=== PATIENT | female | born 1960 | race Asian ===

== ENCOUNTER 2018-04-07 08:44 | Day surgery (SDC) | payer OTHER ==
[2018-04-06 14:47] VITALS: BMI 24.3
[2018-04-07] MEDS ORDERED: LIDOCAINE VISCOUS 2% ORAL/TOP 20 ML UNIT-DOSE CUP ONE (10:17)
[2018-04-07] MEDS ORDERED: PROPOFOL 20 ML ONE ×3 (10:17)
[2018-04-07 11:29] VITALS: TEMP 97.8
[2018-04-07 12:10] VITALS: BP 129/84; PULSE 60
--- NOTE | 2018-04-10 10:11 | PATH ---
Surgical Pathology Report Patient Name: JUAN FLORES [facility]. Rec. #: [id number] /Age/Gender: 1960 (Age: 57) / F Account: [id number] Location: U-ENDOSCOPY Taken: 04/07/2018 Received: 04/07/2018 Reported: 04/10/2018 Physicians: Osman Riggs M.D. Specimen(s) Received A: BX 2ND PORTION DUODENUM AND DUODENAL BULB B: BX ANTRUM Clinical History Family history of stomach cancer, colon cancer screening, constipation, rectal bleeding Postoperative diagnosis: Atrophic gastritis, normal colon screening Final Diagnosis A. DUODENUM, SECOND PORTION AND DUODENAL BULB, BIOPSY: DUODENAL MUCOSA WITH MILD CHRONIC DUODENITIS, SMALL LYMPHOID AGGREGATES, AND PRESERVED VILLOUS ARCHITECTURE. B. STOMACH, ANTRUM, BIOPSY: GASTRIC ANTRAL MUCOSA WITH MODERATE CHRONIC GASTRITIS AND INTESTINAL METAPLASIA. IMMUNOHISTOCHEMICAL STAIN FOR H. PYLORI IS NEGATIVE. Electronically Signed Lesvia Silver M.D. Gross Description A. Received in formalin, labeled "biopsy second portion of duodenum and duodenal bulb" are 3 hadley, irregular portions of soft tissue ranging from 0.3-0.4 cm. in greatest dimension. The specimens are submitted in toto in one cassette. B. Received in formalin, labeled "biopsy antrum" are 7 hadley, irregular portions of soft tissue ranging from 0.2-0.6 cm. in greatest dimension. The specimens are submitted in toto in one cassette. DL/04/07/2018 saudi/04/07/2018
== END 2018-04-07 12:11 | disposition home or self-care (01) ==
LOC: JASU-ENDO 08:44
PROVIDERS: ATTEND Internal Medicine Gastroenterology
PROC: 0DB98ZX Excision of Duodenum, Via Natural or Artificial Opening Endoscopic, Diagnostic (ICD-10-PCS; 2018-04-07)
PROC: 0DJD8ZZ Inspection of Lower Intestinal Tract, Via Natural or Artificial Opening Endoscopic (ICD-10-PCS; principal; 2018-04-07 10:00)
DX: Z12.11 Encounter for screening for malignant neoplasm of colon (principal); Z80.0 Family history of malignant neoplasm of digestive organs; K64.8 Other hemorrhoids; K29.40 Chronic atrophic gastritis without bleeding
CPT/HCPCS: 43239; G0105; 88305-TC; 88342-TC

== ENCOUNTER 2018-05-31 08:10 | Emergency (ER) | payer OTHER ==
[2018-05-31 08:15] VITALS: BP 144/104; PULSE 78; TEMP 97.9; BMI 24.7
[2018-05-31] MEDS ORDERED: ASPIRIN 81 MG CHEWABLE TABLETS PO ONE (08:36)
--- NOTE | 2018-05-31 08:36 | PDOC ---
History of Present Illness - General Chief Complaint: Chest Pain Stated Complaint: Nausea PAIN Time Seen by Provider: 05/31/18 08:25 History Source: Patient Past History - Past Medical History Allergies/Adverse Reactions: Allergies Allergy/AdvReac Type Severity Reaction Status Date / Time No Known Allergies Allergy Verified 05/31/18 08:14 Home Medications: Ambulatory Orders NK [No Known Home Medication] 04/06/18 Anemia: No Asthma: No Cancer: No Cardiac Disorders: No CVA: No COPD: No CHF: No Dementia: No Diabetes: No GI Disorders: Yes (GASTRITIS, GERD) Disorders: No HTN: No Hypercholesterolemia: Yes Liver Disease: No Seizures: No Thyroid Disease: No - Surgical History Abdominal Surgery: Yes Appendectomy: No Cardiac Surgery: No Cholecystectomy: Yes (LAP CHOL-2012) Lung Surgery: No Neurologic Surgery: No Orthopedic Surgery: Yes (LEFT WRIST-OPEN REDUCTION, LT ULCER FX SX) - Immunization History Immunization Up to Date: Yes - Suicide/Smoking/Psychosocial Hx Smoking History: Never smoked Have you smoked in the past 12 months: No Hx Alcohol Use: No Drug/Substance Use Hx: No Substance Use Type: None Hx Substance Use Treatment: No Cardiac Specific PMH - Complaint Specific PMHX Pacemaker: No *Physical Exam - Vital Signs Last Vital Signs Temp Pulse Resp BP Pulse Ox 97.9 F 78 18 144/104 96 05/31/18 08:12 05/31/18 08:12 05/31/18 08:12 05/31/18 08:12 05/31/18 08:12 *DC/Admit/Observation/Transfer - Referrals Referrals: Lili Davis MD [Primary Care Provider] - - Patient Instructions - Post Discharge Activity
--- NOTE | 2018-05-31 08:59 | PDOC ---
History of Present Illness - General Chief Complaint: Chest Pain Stated Complaint: Nausea PAIN Time Seen by Provider: 05/31/18 08:25 History Source: Patient Exam Limitations: Clinical Condition - History of Present Illness Initial Comments: 05/31/18 08:57 Patient with history of hyperlipidemia, GERD and lung papilloma requiring lumpectomy 2 years ago present with complain of left-sided chest pain which she describes as aching pain localized to left side. Patient denies radiation of pain, shortness of breath, dizziness, nausea, vomiting, palpitations. Timing/Duration: 24 hours Past History - Past Medical History Allergies/Adverse Reactions: Allergies Allergy/AdvReac Type Severity Reaction Status Date / Time No Known Allergies Allergy Verified 05/31/18 08:14 Home Medications: Ambulatory Orders Naproxen 500 mg PO BID PRN #20 tablet 05/31/18 Anemia: No Asthma: No Cancer: No Cardiac Disorders: No CVA: No COPD: No CHF: No Dementia: No Diabetes: No GI Disorders: Yes (GASTRITIS, GERD) Disorders: No HTN: No Hypercholesterolemia: Yes Liver Disease: No Seizures: No Thyroid Disease: No - Surgical History Abdominal Surgery: Yes Appendectomy: No Cardiac Surgery: No Cholecystectomy: Yes (LAP CHOLEY-2012) Lung Surgery: No Neurologic Surgery: No Orthopedic Surgery: Yes (LEFT WRIST-OPEN REDUCTION, LT ULCER FX SX) - Immunization History Immunization Up to Date: Yes - Suicide/Smoking/Psychosocial Hx Smoking History: Never smoked Have you smoked in the past 12 months: No Hx Alcohol Use: No Drug/Substance Use Hx: No Substance Use Type: None Hx Substance Use Treatment: No Review of Systems - Review of Systems Able to Perform ROS?: Yes Is the patient limited Togolese proficient: No Constitutional: No: Chills, Fever HEENTM: No: Symptoms Reported Respiratory: No: Cough, Shortness of Breath, SOB with Exertion, Productive cough , Hemoptysis Cardiac (ROS): Yes: Chest Pain (left sided). No: Irregular Heart Rate, Palpitations, Syncope, Chest Tightness ABD/GI: No: Diarrhea, Nausea, Vomiting Musculoskeletal: Yes: Muscle Pain (left chest wall pain). No: Muscle Weakness Neurological: No: Headache, Numbness, Weakness, Unsteady Gait All Other Systems: Reviewed and Negative *Physical Exam - Vital Signs Last Vital Signs Temp Pulse Resp BP Pulse Ox 97.9 F 78 18 144/104 96 05/31/18 08:12 05/31/18 08:12 05/31/18 08:12 05/31/18 08:12 05/31/18 08:12 - Physical Exam Comments: 05/31/18 09:14 GENERAL: Well developed, well nourished. Awake and alert. No acute distress. HEENT: Normocephalic, atraumatic. PERRLA, EOMI. No conjunctival pallor. Sclera are non- icteric. Moist mucous membranes. Oropharynx is clear. NECK: Supple. Full ROM. No JVD. Carotid pulses 2+ and symmetric, without bruits. No thyromegaly. No lymphadenopathy. CARDIOVASCULAR: Mild reproducible tenderness over left second coaster region. Regular rate and rhythm. No murmurs, rubs, or gallops. Distal pulses are 2+ and symmetric. PULMONARY: No evidence of respiratory distress. Lungs clear to auscultation bilaterally. No wheezing, rales or rhonchi. ABDOMINAL: Soft. Non-tender. Non-distended. No rebound or guarding. No organomegaly. Normoactive bowel sounds. EXTREMITIES: No cyanosis. No clubbing. No edema. No calf tenderness. SKIN: Warm and dry. Normal capillary refill. No rashes. No jaundice. NEUROLOGICAL: Alert, awake, appropriate. . Normal speech. Toes are down-going bilaterally. Gait is normal without ataxia. PSYCHIATRIC: Cooperative. Good eye contact. Appropriate mood and affect. General Appearance: Yes: Nourished, Appropriately Dressed. No: Apparent Distress ED Treatment Course - LABORATORY CBC & Chemistry Diagram: 05/31/18 09:01 05/31/18 09:01 Medical Decision Making - Medical Decision Making 05/31/18 09:15 Patient with history of hyperlipidemia presenting with complain of left-sided sternal pain since yesterday which is worse with pressing on the chest without any other symptoms. Exam significant for tenderness to chest wall of 2nd left costovertebral region otherwise unremarkable. EKG ordered. CBC, CMP and cardiac labs ordered. Symptoms likely costochondritis. Chest x-ray ordered to rule out acute pathology. Treat based on labs and imaging results 05/31/18 13:50 Chest x-ray with no acute pathology. CBC CMP unremarkable. EKG normal sinus rhythm. Troponins lab ordered 4hours part negative. Symptoms likely costochondritis and patient stable for home discharge on NSAIDs *DC/Admit/Observation/Transfer Diagnosis at time of Disposition: Costochondral chest pain - Discharge Dispostion Disposition: HOME Condition at time of disposition: Stable Decision to Admit order: No - Prescriptions Prescriptions: Naproxen 500 mg PO BID PRN #20 tablet PRN Reason: pain - Referrals Referrals: Lili Davis MD [Primary Care Provider] - - Patient Instructions Printed Discharge Instructions: DI for Chest Pain, DI for Costochondritis Additional Instructions: Labs done and was negative for any cardiac issue. Take medication as prescribed as needed for pain., To the emergency room if worsening chest pain, dizziness, nausea vomiting or lightheadedness - Post Discharge Activity
--- NOTE | 2018-05-31 08:59 | PDOC ---
*Physical Exam - Vital Signs Last Vital Signs Temp Pulse Resp BP Pulse Ox 97.9 F 78 18 144/104 96 05/31/18 08:12 05/31/18 08:12 05/31/18 08:12 05/31/18 08:12 05/31/18 08:12 ED Treatment Course - LABORATORY CBC & Chemistry Diagram: 05/31/18 09:01 05/31/18 09:01 - RADIOLOGY Radiology Studies Ordered: Category Date Time Status CHEST X-RAY PORTABLE* [RAD] Stat Radiology 05/31/18 08:37 Ordered Medical Decision Making - Medical Decision Making 05/31/18 08:57 Pt seen by Midlevel Provider under my direct supervision Pt interviewed and examined Ancillary studies reviewed I agree with plan as outlined by Midlevel Provider 05/31/18 12:45 EKG:Twelve-lead EKG was performed and reviewed by me. There is normal sinus rhythm with a normal rate. The axis is normal. The intervals are normal. There are no ST or T wave abnormalities. Impression: Normal twelve-lead EKG 05/31/18 12:46 Laboratory Tests 05/31/18 05/31/18 09:01 09:01 WBC 5.9 Hgb 14.5 Hct 42.0 Plt Count 293 D Creatine Kinase 108 Troponin I < 0.02 *DC/Admit/Observation/Transfer Diagnosis at time of Disposition: Costochondral chest pain - Discharge Dispostion Disposition: HOME Condition at time of disposition: Stable - Prescriptions Prescriptions: Naproxen 500 mg PO BID PRN #20 tablet PRN Reason: pain - Referrals Referrals: Lili Davis MD [Primary Care Provider] - - Patient Instructions Printed Discharge Instructions: DI for Costochondritis, DI for Chest Pain Additional Instructions: Labs done and was negative for any cardiac issue. Take medication as prescribed as needed for pain., To the emergency room if worsening chest pain, dizziness, nausea vomiting or lightheadedness - Post Discharge Activity
[2018-05-31] MEDS ORDERED: ASPIRIN 81 MG CHEWABLE TABLETS ONE (09:06)
[2018-05-31 09:15] LABS: BASO % 0.4 % (0-2.0); EOS % 1.7 % (0-4.5); HEMOGLOBIN 14.5 GM/dL (10.7-15.3); LYMPH % 21.9 % (8-40); MCH 29.2 pg (25.7-33.7); MCHC 34.4 g/dl (32.0-36.0); MEAN CELL VOLUME 84.9 fl (80-96); MONO % 4.7 % (3.8-10.2); NEUT % 71.3 % (42.8-82.8); PLATELET COUNT 293 K/MM3 (134-434); RBC 4.95 M/mm3 (3.60-5.2); RDW 12.6 % (11.6-15.6); WHITE BLOOD COUNT 5.9 K/mm3 (4.0-10.0)
[2018-05-31 09:49] LABS: ANION GAP 6 MMOL/L (8-16); BLOOD UREA NITROGEN 17 mg/dL (7-18); CALCIUM 8.9 mg/dL (8.5-10.1); CHLORIDE 105 mmol/L (98-107); CO2 28 mmol/L (21-32); CREATININE 0.6 mg/dL (0.55-1.3); GLUCOSE,RANDOM 103 mg/dL (74-106); MAGNESIUM 2.1 mg/dL (1.8-2.4); POTASSIUM 3.9 mmol/L (3.5-5.1); SGOT/AST 20 U/L (15-37); SGPT/ALT 17 U/L (13-61); SODIUM 139 mmol/L (136-145)
[2018-05-31 09:50] LABS: INR 0.93 (0.83-1.09); PROTHROMBIN TIME (PATIENT) 10.5 SEC (9.7-13.0)
[2018-05-31 09:54] LABS: ALK PHOS 63 U/L (45-117); BILIRUBIN,TOTAL 0.6 mg/dL (0.2-1); TOT PROT 7.3 g/dl (6.4-8.2)
--- NOTE | 2018-05-31 13:37 | EKG ---
Test Reason : Blood Pressure : / mmHG Vent. Rate : 065 BPM Atrial Rate : 065 BPM P-R Int : 192 ms QRS Dur : 088 ms QT Int : 426 ms P-R-T Axes : 065 033 031 degrees QTc Int : 443 ms NORMAL SINUS RHYTHM NORMAL ECG WHEN COMPARED WITH ECG OF 09-SEP-2013 22:02, NO SIGNIFICANT CHANGE WAS FOUND Confirmed by JUN KAUR MD ([id number]) on 05/31/2018 1:36:25 PM Referred By: Confirmed By:JUN KAUR MD
[2018-05-31] MEDS ORDERED: IBUPROFEN 400 MG TABLET (FP) PO ONE ×2 (13:50→14:10)
== END 2018-05-31 14:19 | disposition home or self-care (01) ==
LOC: JER 08:10
DX: R07.89 Other chest pain (principal); E78.5 Hyperlipidemia, unspecified; K21.9 Gastro-esophageal reflux disease without esophagitis; D36.9 Benign neoplasm, unspecified site
CPT/HCPCS: 36415; 71045-TC-FY; 80053; 82550; 83735; 84484; 85025; 85610; 93005; 93010; 99283-25

== ENCOUNTER 2019-03-24 07:47 | Emergency (ER) | payer OTHER ==
[2019-03-24 08:23] VITALS: BP 137/87; PULSE 69; TEMP 97.6; BMI 25.7
--- NOTE | 2019-03-24 08:41 | PDOC ---
History of Present Illness - General Chief Complaint: Back Pain Stated Complaint: BACK PAIN Time Seen by Provider: 03/24/19 08:22 History Source: Patient Exam Limitations: No Limitations - History of Present Illness Initial Comments: 03/24/19 08:28 3 days ago and has progressively had worsening of right low back pain and spasm. Denies numbness or tingling to feet, denies any problems with bowel or bladder. Occurred: reports: yesterday Severity: reports: mild, moderate Pain Location: reports: back Method of Injury: Yes: other (was bending and lifting doing some gardening work 3 days ago and thinks back pain is related to that.) Modifying Factors: improves with: cold therapy, pain medication Loss of Consciousness: no loss of consciousness Associated Symptoms (Fall): denies symptoms Past History - Travel Traveled outside of the country in the last 30 days: No Close contact w/someone who was outside of country & ill: No - Past Medical History Allergies/Adverse Reactions: Allergies Allergy/AdvReac Type Severity Reaction Status Date / Time No Known Allergies Allergy Verified 05/31/18 08:14 Home Medications: Ambulatory Orders Cyclobenzaprine HCl 10 mg PO Q8H PRN #14 tablet 03/24/19 Lidocaine 5% Patch [Lidoderm -] 1 patch TP DAILY #7 patch 03/24/19 Naproxen [Naprosyn -] 500 mg PO BID #30 tablet 03/24/19 Anemia: No Asthma: No Cancer: No Cardiac Disorders: No CVA: No COPD: No CHF: No Dementia: No Diabetes: No GI Disorders: Yes (GASTRITIS, GERD) Disorders: No HTN: No Hypercholesterolemia: Yes Liver Disease: No Seizures: No Thyroid Disease: No - Surgical History Abdominal Surgery: Yes Appendectomy: No Cardiac Surgery: No Cholecystectomy: Yes (CATRACHO PEARCE-2012) Lung Surgery: No Neurologic Surgery: No Orthopedic Surgery: Yes (LEFT WRIST-OPEN REDUCTION, LT ULCER FX SX) - Immunization History Immunization Up to Date: Yes - Suicide/Smoking/Psychosocial Hx Smoking History: Never smoked Have you smoked in the past 12 months: No Information on smoking cessation initiated: No Hx Alcohol Use: No Drug/Substance Use Hx: No Substance Use Type: None Hx Substance Use Treatment: No Review of Systems - Review of Systems Able to Perform ROS?: Yes Is the patient limited British proficient: Yes Constitutional: Yes: Symptoms Reported, See HPI. No: Fever, Malaise HEENTM: Yes: See HPI. No: Symptoms Reported Respiratory: Yes: See HPI. No: Symptoms reported ABD/GI: No: Symptoms Reported Musculoskeletal: Yes: Symptoms Reported, See HPI, Back Pain, Joint Swelling, Muscle Pain Integumentary: No: Symptoms Reported All Other Systems: Reviewed and Negative *Physical Exam - Vital Signs Last Vital Signs Temp Pulse Resp BP Pulse Ox 97.6 F 69 18 137/87 97 03/24/19 08:13 03/24/19 08:13 03/24/19 08:13 03/24/19 08:13 03/24/19 08:13 - Physical Exam General Appearance: Yes: Nourished, Appropriately Dressed, Apparent Distress ( walks and moves slowly due to low back/right side.), Mild Distress HEENT: positive: ANDREW, Normal ENT Inspection, TMs Normal, Pharynx Normal Neck: positive: Supple. negative: Tender Respiratory/Chest: positive: Lungs Clear, Normal Breath Sounds Gastrointestinal/Abdominal: positive: Soft. negative: Tender Extremity: positive: Normal Inspection. negative: Pelvis Stable Integumentary: positive: Dry, Warm Neurologic: positive: printer technician II-XII NML intact, Fully Oriented, Alert, Normal Mood/ Affect, Normal Response Progress Note - Progress Note Progress Note: Low back strain, will treat with NSAIDs, cyclobenzaprine, lidocaine patches. *DC/Admit/Observation/Transfer Diagnosis at time of Disposition: Low back strain Qualifiers: Encounter type: initial encounter Qualified Code(s): S39.012A - Strain of muscle, fascia and tendon of lower back, initial encounter - Discharge Dispostion Disposition: HOME Condition at time of disposition: Stable Decision to Admit order: No - Prescriptions Prescriptions: Cyclobenzaprine HCl 10 mg PO Q8H PRN #14 tablet PRN Reason: spasm Lidocaine 5% Patch [Lidoderm -] 1 patch TP DAILY #7 patch Naproxen [Naprosyn -] 500 mg PO BID #30 tablet - Referrals Referrals: Lili Davis MD [Primary Care Provider] - - Patient Instructions Printed Discharge Instructions: DI for Back Strain or Sprain Additional Instructions: Rest, no heavy lifting or exercise until pain is resolved Hot soaks to neck and low back as often as possible/hot showers or Jacuzzis No massage or therapy until spasm is gone Continue Naprosyn 500 mg tablet, 1 tablet every 8 hours for the next 3 days then as needed for pain and swelling Cyclobenzaprine 1-10mg every 8 hours as needed for spasm May use lidocaine patch every 12 hours to provide topical pain relief If not significant improvement within 24 hours with medication and rest regime, followup with private physician for change in medications and /or therapy. - Post Discharge Activity Forms/Work/School Notes: Back to Work
== END 2019-03-24 08:48 | disposition home or self-care (01) ==
LOC: JERFT 07:47 → JER 07:47 → JERFT 08:48
DX: S39.012A Strain of muscle, fascia and tendon of lower back, initial encounter (principal); X50.1XXA Overexertion from prolonged static or awkward postures, initial encounter; Y93.H2 Activity, gardening and landscaping; Y92.017 Garden or yard in single-family (private) house as the place of occurrence of the external cause; Y99.8 Other external cause status; E78.00 Pure hypercholesterolemia, unspecified; Z87.19 Personal history of other diseases of the digestive system
CPT/HCPCS: 99282-25

== ENCOUNTER 2020-11-12 04:13 | Day surgery (SDC) | payer OTHER ==
[2020-11-10 08:39] VITALS: BMI 25.7
[2020-11-12] MEDS ORDERED: LIDOCAINE HCL 1%, 10 MG/ML (20ML VIAL) ONE (07:35)
[2020-11-12] MEDS ORDERED: PROPOFOL 20 ML ONE ×2 (09:27)
[2020-11-12] MEDS ORDERED: MIDAZOLAM HCL 2 MG/2 ML SINGLE DOSE VIAL ONE (09:27)
[2020-11-12] MEDS ORDERED: ceFAZolin 2 GRAM PREMIX BAG IVPB ONE (10:05)
[2020-11-12] MEDS ORDERED: LIDOCAINE HCL 1%, 10 MG/ML (20ML VIAL) INF ONE (10:14)
[2020-11-12] MEDS ORDERED: BUPIVACAINE HCL/PF 0.5% (5MG/ML) 10 ML VIAL IJ ONE (10:14)
[2020-11-12 12:51] VITALS: BP 116/67; PULSE 70; TEMP 97.4
== END 2020-11-12 12:54 | disposition home or self-care (01) ==
LOC: JASU-SURG 04:13
PROVIDERS: ATTEND Orthopaedic Surgery
PROC: 01N50ZZ Release Median Nerve, Open Approach (ICD-10-PCS; principal; 2020-11-12 09:30)
DX: G56.01 Carpal tunnel syndrome, right upper limb (principal)

== ENCOUNTER 2023-05-10 04:49 | Day surgery (SDC) | payer BC ==
[2023-05-06 11:10] VITALS: BMI 24.7
[2023-05-10] MEDS ORDERED: BUPIVACAINE HCL/PF 0.5% (5MG/ML) 10 ML VIAL ONE (08:44)
[2023-05-10] MEDS ORDERED: LIDOCAINE HCL 1%, 10 MG/ML (20ML VIAL) ONE (08:44)
[2023-05-10] MEDS ORDERED: GENTAMICIN SO4 80 MG/2 ML VIAL ONE (08:44)
[2023-05-10] MEDS ORDERED: DEXAMETHASONE SOD PHOSPHATE 4 MG/1 ML VIAL ONE ×2 (08:44→10:13)
[2023-05-10] MEDS ORDERED: MIDAZOLAM HCL 2 MG/2 ML SINGLE DOSE VIAL ONE (08:57)
[2023-05-10] MEDS ORDERED: PROPOFOL 20 ML ONE (08:58)
[2023-05-10] MEDS ORDERED: ceFAZolin SODIUM 1 GM VIAL IVPB ONE (09:07)
[2023-05-10] MEDS ORDERED: BUPIVACAINE HCL 0.5% 250 MG/50 ML VIAL IV ONE (09:08)
[2023-05-10] MEDS ORDERED: LIDOCAINE 1% P/F 10 MG/ML VIAL INF ONE (09:08)
[2023-05-10] MEDS ORDERED: DEXAMETHASONE SOD PHOSPHATE 4 MG/1 ML VIAL IM ONE (10:07)
[2023-05-10] MEDS ORDERED: BUPIVACAINE HCL/PF 0.5% (5 MG/ML) 30 ML VIAL IJ ONE (10:07)
[2023-05-10 11:09] VITALS: RESP 16
[2023-05-10 12:08] VITALS: BP 140/87; PULSE 66; TEMP 97.7
== END 2023-05-10 11:55 | disposition home or self-care (01) ==
LOC: JASU-SURG 04:49
PROVIDERS: ATTEND Podiatrist Foot Surgery
PROC: 0QBN0ZZ Excision of Right Metatarsal, Open Approach (ICD-10-PCS; 2023-05-10)
PROC: 0QSN04Z Reposition Right Metatarsal with Internal Fixation Device, Open Approach (ICD-10-PCS; principal; 2023-05-10 08:30)
DX: M21.611 Bunion of right foot (principal); M20.11 Hallux valgus (acquired), right foot
CPT/HCPCS: 73630-TC-RT-FY; C1713